=== PATIENT | male | born 1960 | race African-American/Black ===

== ENCOUNTER 2018-08-10 13:04 | Emergency (ER) | payer SELFPAY ==
[~2018-08-10] VITALS: Ht 172.7 cm; Wt 68.2 kg
[2018-08-10 13:13] VITALS: BP 110/78
== END 2018-08-10 16:11 | disposition left against medical advice (07) ==
LOC: EMS 13:07
DX: Z02.89 Encounter for other administrative examinations (principal); Z53.21 Procedure and treatment not carried out due to patient leaving prior to being seen by health care provider

== ENCOUNTER 2018-08-18 15:18 | Emergency (ER) | payer OTHER ==
[~2018-08-18] VITALS: Ht 170.2 cm; Wt 72.7 kg
[2018-08-18 16:17] VITALS: BP 121/83
== END 2018-08-18 16:39 | disposition home or self-care (01) ==
LOC: EMS 15:20
DX: F10.10 Alcohol abuse, uncomplicated (principal); F17.210 Nicotine dependence, cigarettes, uncomplicated; F14.90 Cocaine use, unspecified, uncomplicated; Z71.41 Alcohol abuse counseling and surveillance of alcoholic

== ENCOUNTER 2020-09-08 15:03 | Emergency (ER) | payer OTHER ==
[~2020-09-08] VITALS: Ht 170.2 cm; Wt 70.2 kg
[2020-09-08] MEDS ORDERED: FentaNYL CITRATE PF 100 MCG/2 ML VIAL IVP ONE (15:30)
[2020-09-08] MEDS ORDERED: MIDAZOLAM HCL 2 MG/2 ML VIAL IVP ONE (15:30)
[2020-09-08] MEDS ORDERED: LIDOCAINE 2% VISCOUS 15 ML SOLUTION UDCUP PO ONE (18:00)
[2020-09-08] MEDS ORDERED: HYDROGEN PEROXIDE 118 ML SOLUTION TP PRN (18:00)
[2020-09-08 21:00] VITALS: BP 136/71
== END 2020-09-08 22:05 | disposition home or self-care (01) ==
LOC: EMS 15:03
DX: T18.0XXA Foreign body in mouth, initial encounter (principal); F14.90 Cocaine use, unspecified, uncomplicated; F17.210 Nicotine dependence, cigarettes, uncomplicated; Z46.3 Encounter for fitting and adjustment of dental prosthetic device; X58.XXXA Exposure to other specified factors, initial encounter; Y93.89 Activity, other specified; Y92.89 Other specified places as the place of occurrence of the external cause; Y99.8 Other external cause status
CPT/HCPCS: 41899; 99285; J2250; J3010